=== PATIENT | male | born 1980 | race Caucasian/White ===

== ENCOUNTER 2016-06-09 12:39 | Emergency (ER) | payer OTHER ==
[~2016-06-09] VITALS: Ht 177.8 cm; Wt 91.2 kg
[2016-06-09 12:41] VITALS: BP 135/82
== END 2016-06-09 13:21 | disposition home or self-care (01) ==
LOC: ED 13:15
DX: L50.1 Idiopathic urticaria (principal)
CPT/HCPCS: 99283